=== PATIENT | male | born 1965 | race African-American/Black ===

== ENCOUNTER 2018-02-02 11:31 | Emergency (ER) | payer MEDICAID ==
[~2018-02-02] VITALS: Ht 188 cm; Wt 106.6 kg
[2018-02-02 11:38] VITALS: BP_SYST 117
[2018-02-02 12:23] LABS: BASOPHILS % (AUTO) 0.5 % (0.0-2.0); EOSINOPHILS # (AUTO) 0.2 K/uL (0.0-0.4); EOSINOPHILS % (AUTO) 3.8 % (0.0-4.0); HEMATOCRIT 38.6 % (36-54); HEMOGLOBIN 12.3 g/dL (14.0-18.0); LYMPHOCYTES # (AUTO) 0.8 K/uL (1.0-5.5); LYMPHOCYTES % (AUTO) 13.8 % (20.5-51.5); MEAN CORPUSCULAR HEMOGLOBIN 27 pg (27-31); MEAN CORPUSCULAR HGB CONC 32 % (32-36); MEAN CORPUSCULAR VOLUME 86 fL (79.0-98.0); MONOCYTES # (AUTO) 0.4 K/uL (0.0-1.0); MONOCYTES % (AUTO) 7.1 % (1.7-9.3); NEUTROPHILS % (AUTO) 74.8 % (40.0-70.0); PLATELET COUNT (AUTO) 174 K/uL (130-430); RED CELL DISTRIBUTION WIDTH 17.3 % (9.0-15.0)
[2018-02-02 12:24] LABS: NEUTROPHILS # (AUTO) 4.6 K/uL (1.8-7.7)
[2018-02-02 12:41] LABS: INR 4.1 (0.80-1.20); PROTHROMBIN TIME 41.9 SECS (9.5-12.5)
[2018-02-02 14:39] VITALS: BP_SYST 110
== END 2018-02-02 14:39 | disposition home or self-care (01) ==
LOC: SED 11:31 → EDBD 11:31 → SED 14:39
DX: R04.0 Epistaxis (principal); D68.59 Other primary thrombophilia; E11.9 Type 2 diabetes mellitus without complications; I50.9 Heart failure, unspecified
CPT/HCPCS: 36415; 85025; 85610-TC; 85730-TC; 99284

== ENCOUNTER 2018-02-04 07:39 | Emergency (ER) | payer MEDICAID ==
[~2018-02-04] VITALS: Ht 188 cm; Wt 106.6 kg
[2018-02-04 07:47] VITALS: BP_SYST 102
[2018-02-04 08:38] VITALS: BP_SYST 110
== END 2018-02-04 08:35 | disposition home or self-care (01) ==
LOC: SED 07:39
DX: R04.0 Epistaxis (principal); I50.9 Heart failure, unspecified; E11.9 Type 2 diabetes mellitus without complications
CPT/HCPCS: 99283

== ENCOUNTER 2018-06-08 14:09 | Emergency (ER) | payer MEDICAID ==
[~2018-06-08] VITALS: Ht 188 cm; Wt 104.3 kg
[2018-06-08 14:17] VITALS: BP_SYST 117
[2018-06-08 16:01] VITALS: BP_SYST 114
== END 2018-06-08 16:03 | disposition home or self-care (01) ==
LOC: SED 14:09
DX: M10.0 Idiopathic gout (principal); I11.0 Hypertensive heart disease with heart failure; I50.9 Heart failure, unspecified; E11.9 Type 2 diabetes mellitus without complications; Z86.79 Personal history of other diseases of the circulatory system
CPT/HCPCS: 99284